=== PATIENT | female | born 1990 | race Caucasian/White ===

== ENCOUNTER 2023-01-20 01:35 | Emergency (ER) | payer MEDICAID ==
[~2023-01-20] VITALS: Ht 154.9 cm; Wt 68.2 kg
[2023-01-20] MEDS ORDERED: EPINEPHrine 1:1,000 [1 MG/ML] VIAL ONE (01:39)
[2023-01-20 01:41] VITALS: TEMP 97.9
[2023-01-20] MEDS ORDERED: EPINEPHrine 1:1,000 [1 MG/ML] VIAL SQ ONE (01:45)
[2023-01-20] MEDS ORDERED: MethylPREDNISolone SOD SUCC 125 MG/2 ML VIAL IVP ONE (01:45)
[2023-01-20] MEDS ORDERED: SODIUM CHLORIDE 0.9% 1,000 ML IV ONE (01:45)
[2023-01-20] MEDS ORDERED: FAMOTIDINE 20 MG/2 ML VIAL IVP ONE (01:45)
[2023-01-20] MEDS ORDERED: DiphenhydrAMINE HCL 50 MG/ML VIAL IVP ONE (01:45)
[2023-01-20 04:49] VITALS: BP 98/52; PULSE 74; RESP 18
[2023-01-20] MEDS ORDERED: PRED-554 PO (05:09)
[2023-01-20] MEDS ORDERED: EPIN0.3P3 IM (05:09)
== END 2023-01-20 05:23 | disposition home or self-care (01) ==
LOC: EMS 01:36
DX: T63.441A Toxic effect of venom of bees, accidental (unintentional), initial encounter (principal); L50.9 Urticaria, unspecified; Y92.89 Other specified places as the place of occurrence of the external cause
CPT/HCPCS: 99284; 96374; 96375; 96361; 96372; J1200; J0171; J3490; J2930; J7030